=== PATIENT | female | born 1980 | race Caucasian/White ===

== ENCOUNTER 2022-08-03 13:39 | Outpatient (CLI) | payer BC, SELFPAY ==
--- NOTE | 2022-08-03 14:00 | CRLHL7_ITS ---
For Patients: As a result of the Cures Act, medical imaging exams and procedure reports are released immediately into your electronic medical record. You may view this report before your referring provider. If you have questions, please contact your health care provider. BILATERAL SCREENING MAMMOGRAM WITH COMPUTER-AIDED DETECTION AND TOMOSYNTHESIS TECHNIQUE: CC and MLO views were obtained. These mammographic images have been obtained using full-field digital technique. These mammographic images were interpreted with the benefit of computer-aided detection. Breast Tomosynthesis was used in this interpretation. COMPARISON FILM: Baseline. FINDINGS: The breasts are extremely dense, which lowers the sensitivity of mammography. IMPRESSION: There is no radiographic evidence for malignancy. ASSESSMENT: BI-RADS Category 1: Negative RECOMMENDATION: Routine screening mammogram in 1 year. A lay language report of this examination will be provided to the patient. Evangelist Nicolas M.D. Diagnostic Radiologist [email or web address] Transcribed: 8:48 a.m. PT/Dictated by: Evangelist Nicolas MD @ 08/04/2022 9:18:00 AM (Electronically Signed)
== END 2022-08-03 13:40 | disposition home or self-care (01) ==
LOC: MAMMO 13:41
PROVIDERS: PCP Family Medicine; Visit Provider Family Medicine
DX: Z12.31 Encounter for screening mammogram for malignant neoplasm of breast (principal); R92.2 Inconclusive mammogram
CPT/HCPCS: 77063; 77067

== ENCOUNTER 2024-01-03 13:16 | Outpatient (CLI) | payer BC, SELFPAY | END 2024-01-03 13:17 | disposition home or self-care (01) | LOC: NFLDREF 13:31 | PROVIDERS: PCP Family Medicine; Visit Provider Family Medicine | DX: R30.0 Dysuria (principal); R35.89 Other polyuria; R42 Dizziness and giddiness | CPT/HCPCS: 80053; 87086 ==

== ENCOUNTER 2024-01-14 08:13 | Outpatient (CLI) | payer BC, SELFPAY ==
--- NOTE | 2024-01-14 08:45 | CRLHL7_ITS ---
For Patients: As a result of the Century Cures Act, medical imaging exams and procedure reports are released immediately into your electronic medical record. You may view this report before your referring provider. If you have questions, please contact your health care provider. BILATERAL SCREENING MAMMOGRAM WITH COMPUTER-AIDED DETECTION AND TOMOSYNTHESIS TECHNIQUE: CC and MLO views were obtained. These mammographic images have been obtained using full-field digital technique. These mammographic images were interpreted with the benefit of computer-aided detection. Breast Tomosynthesis was used in this interpretation. COMPARISON FILM: 08/03/22. FINDINGS: The breasts are heterogeneously dense, which may obscure small masses. IMPRESSION: There is no radiographic evidence for malignancy. ASSESSMENT: BI-RADS Category 1: Negative RECOMMENDATION: Routine screening mammogram in 1 year. A lay language report of this examination will be provided to the patient. Evangelist Nicolas M.D. Diagnostic Radiologist [email or web address] SP/Dictated by: Evangelist Nicolas MD @ 01/17/2024 12:07:00 PM (Electronically Signed)
== END 2024-01-14 08:14 | disposition home or self-care (01) ==
LOC: MAMMO 08:14
PROVIDERS: PCP Family Medicine; Visit Provider Family Medicine
DX: Z12.31 Encounter for screening mammogram for malignant neoplasm of breast (principal); R92.333 Mammographic heterogeneous density, bilateral breasts
CPT/HCPCS: 77063; 77067

== ENCOUNTER 2024-10-27 08:03 | Outpatient (CLI) | payer BC, SELFPAY ==
--- NOTE | 2024-10-27 08:15 | MR_ITS ---
[facility] [address] [facility] [address] Phone:?[phone] Fax:?[phone] Referring Physician Information: John Green M.D. [address] [facility] [address] Phone:?[phone] Fax:?[phone] Patient:Bhavna Fernandez D.O.B:?1980 Sex:?Female Phone:?[phone] [facility] MRN:?[id number] Exam Date:?10/27/2024 EXAM: MRI of the RIGHT KNEE, without contrast CLINICAL HISTORY: Ongoing right knee pain. Osteochondral defect. COMPARISONS: Plain radiographs 10/13/2024. TECHNICAL: MR sequences of the right knee: sagittals: PD, PDFS coronals: PD, STIR axials: PD, T2 FS CONTRAST: None SEDATION: None FINDINGS: Bones: 1.7 cm in AP dimension by 1.3 cm in transverse dimension by 0.7 cm in depth osteochondral lesion of the weightbearing portion of the medial femoral condyle with multiple in situ unstable osteochondral fragments and full-thickness disruption of the overlying cartilage. 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 Retinacula: The medial and lateral retinacula are intact. Fat pads: The infrapatellar, quadriceps, and prefemoral fat pads are unremarkable. Knee joint: Effusion: Trace right knee joint effusion. Popliteal cyst: Large perforated popliteal cyst. Posteromedial corner: The semimembranosus and pes anserine tendons are intact. Medial compartment: Medial meniscus: 4 mm of medial meniscal extrusion best seen on coronal series 7 image 20. No direct evidence of medial meniscal tear. Cartilage: 1.7 cm in AP dimension by 1.3 cm in transverse dimension by 0.7 cm in depth osteochondral lesion of the weightbearing portion of the medial femoral condyle with multiple in situ unstable osteochondral fragments and full- thickness disruption of the overlying cartilage. Additionally, 8 x 5 x 7 mm osteochondral fragment located posterior to the posterior nonweightbearing portion of the lateral femoral condyle superficial to the femoral origin of the lateral head of the gastrocnemius tendon. There is an immediately adjacent full- thickness perforation of the lateral head of the gastrocnemius tendon best seen on sagittal series 6 images 11 and axial series 4 image 12. Lateral compartment: Lateral meniscus: Intact. Cartilage: Intact. Ligaments: Anterior cruciate ligament: Intact. Posterior cruciate ligament: Intact. Medial collateral ligament: Intact. Posterior oblique ligament: Intact. Fibular collateral ligament: Intact. Posterolateral corner: The distal biceps femoris tendon, iliotibial band, popliteus tendon, popliteus muscle, popliteofibular ligament, and arcuate ligament are intact. Extensor mechanism: Patellar tendon: Intact. Quadriceps tendon: Intact. IMPRESSION: 1. 1.7 cm in AP dimension by 1.3 cm in transverse dimension by 0.7 cm in depth osteochondral lesion of the weightbearing portion of the medial femoral condyle with multiple in situ unstable osteochondral fragments and full-thickness disruption of the overlying cartilage. Additionally, an 8 x 5 x 7 mm osteochondral fragment is located posterior to the posterior nonweightbearing portion of the lateral femoral condyle superficial to the femoral origin of the lateral head of the gastrocnemius tendon. There is an immediately adjacent full- thickness perforation of the lateral head of the gastrocnemius tendon. 2. 4 mm of medial meniscal extrusion. No direct evidence of medial meniscal tear. 3. 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 4. Trace right knee joint effusion. Large perforated popliteal cyst. 5. No ligamentous injury or lateral meniscal pathology of the right knee. RCB Electronically signed on 10/27/2024 10:14:00 AM by Mark Palacios M.D.
== END 2024-10-27 08:04 | disposition home or self-care (01) ==
LOC: MRI 08:06
PROVIDERS: PCP Family Medicine; Visit Provider Orthopaedic Surgery
DX: M25.561 Pain in right knee (principal); M25.461 Effusion, right knee; M71.21 Synovial cyst of popliteal space [Baker], right knee
CPT/HCPCS: 73721

== ENCOUNTER 2024-12-13 13:50 | Outpatient (CLI) | payer BC, SELFPAY ==
[2024-12-16 04:08] LABS: HPV Source Cervix
[2024-12-20 10:02] LABS: Pap Test Digital Imaging Done
== END 2024-12-13 13:51 | disposition home or self-care (01) ==
PROVIDERS: PCP Family Medicine; Visit Provider Registered Nurse
DX: Z12.4 Encounter for screening for malignant neoplasm of cervix (principal); Z11.51 Encounter for screening for human papillomavirus (HPV)
CPT/HCPCS: 87624; 87625; 88141; 88142; 88175

== ENCOUNTER 2025-02-13 15:45 | Outpatient (CLI) | payer BC, SELFPAY ==
--- NOTE | 2025-02-13 16:00 | CRLHL7_ITS ---
For Patients: As a result of the Century Cures Act, medical imaging exams and procedure reports are released immediately into your electronic medical record. You may view this report before your referring provider. If you have questions, please contact your health care provider. INDICATION: BILATERAL SCREENING MAMMOGRAM, ASYMPTOMATIC 44 Y/O FEMALE COMPARISON: 01/14/2024, 08/03/2022 TECHNIQUE: Digital mammogram in CC and MLO projections including computer-aided detection (CAD) and tomosynthesis. BREAST COMPOSITION: The breasts are heterogeneously dense, which may obscure small masses. FINDINGS: No suspicious findings. ASSESSMENT: BI-RADS 1 Negative RECOMMENDATION: Annual screening mammogram. A lay language report of this examination will be provided to the patient. Dictated by: Evangelist Nicolas MD @ 02/14/2025 11:52:42 (Electronically Signed)
== END 2025-02-13 15:46 | disposition home or self-care (01) ==
LOC: MAMMO 15:45
PROVIDERS: PCP Family Medicine; Visit Provider Family Medicine
DX: Z12.31 Encounter for screening mammogram for malignant neoplasm of breast (principal); R92.333 Mammographic heterogeneous density, bilateral breasts
CPT/HCPCS: 77063; 77067